=== PATIENT | female | born 1945 | race Caucasian/White ===

== ENCOUNTER 2016-07-08 17:12 | Emergency (ER) | payer MEDICARE, OTHER ==
[2016-07-08 14:59] LABS: BASOPHILS 0.6 %; BASOPHILS ABSOLUTE 0.05 10/3/uL (0.0-0.16); EOSINOPHILS 2.6 %; EOSINOPHILS ABSOLUTE 0.22 10/3/uL (0.0-0.53); ER CBC TAT 0 Hrs 07 Mins; HEMATOCRIT 36.9 % (36.0-48.0); HEMOGLOBIN 12.3 g/dL (12.0-16.0); IMMATURE GRANULOCYTES 0.4 %; IMMATURE GRANULOCYTES ABSOLUTE 0.03 10/3/uL (0.0-0.11); LYMPHOCYTES 19.6 %; LYMPHOCYTES ABSOLUTE 1.64 10/3/uL (0.67-4.30); MEAN CORPUS HGB CONC 33.3 g/dL (32.0-36.0); MEAN CORPUSCULAR HEMOGLOB 26.2 pg (26.0-34.0); MEAN CORPUSCULAR VOLUME 78.7 fL (80-100); MEAN PLATELET VOLUME 8.9 fL (9.2-13.0); MONOCYTES 8.3 %; MONOCYTES ABSOLUTE 0.69 10/3/uL (0.21-1.20); NEUTROPHILS 68.5 %; NEUTROPHILS ABSOLUTE 5.72 10/3/uL (2.02-8.40); PLATELET COUNT 337 10/3/uL (150-400); RBC DISTRIBUTION WIDTH 15.7 % (12.0-16.0); RED CELL COUNT 4.69 10/6/uL (4.0-5.6); WHITE BLOOD CELLS 8.4 10/3/uL (4.5-10.5)
[2016-07-08 15:07] LABS: MANUAL DIFF NO %
[2016-07-08 15:15] LABS: INTERNATIONAL NORMAL RATI 1.1 UNITS (-); PARTIAL THROMBO TIME 26.7 SEC (22.5-37.2)
[2016-07-08 15:16] LABS: A/G RATIO 0.8 (0.7-1.9); ALBUMIN 4.1 G/DL (3.5-5.0); ALKALINE PHOSPHATASE 76 U/L (45-117); BUN (BLOOD UREA NITROGEN) 23 MG/DL (6-23); CALCIUM, SERUM 9.5 MG/DL (8.5-10.4); CHLORIDE, SERUM 98 MMOL/L (96-112); CO2 (CARBON DIOXIDE) 22 MMOL/L (24-34); CREATININE 1.38 MG/DL (0.55-1.02); GFR AFRICAN AMERICAN 44 ML/MIN (>=60); GFR NON AFRICAN AMERICAN 38 ML/MIN (>=60); GLUCOSE, SERUM 138 MG/DL (60-99); POTASSIUM, SERUM 3.9 MMOL/L (3.5-5.3); SGOT(AST) 26 U/L (5-40); SGPT(ALT) 28 U/L (5-65); SODIUM, SERUM 132 MMOL/L (135-148); TOTAL BILIRUBIN 0.5 MG/DL (0-1.2); TOTAL PROTEIN 9.1 G/DL (6.0-8.5); TROPONIN I <0.02 NG/ML (<0.05)
[2016-07-08] MEDS ORDERED: HUMULIN N1 ML SC ×2 (17:16)
[2016-07-08] MEDS ORDERED: PRIN2.5 PO (17:17)
[2016-07-08] MEDS ORDERED: SYN.025B PO (17:17)
[2016-07-08] MEDS ORDERED: PROAIR HFA INH (17:18)
[2016-07-08] MEDS ORDERED: COMBIVENT RESPIM4 GM INH (17:18)
[2016-07-08] MEDS ORDERED: NEUR300 PO (17:19)
[2016-07-08] MEDS ORDERED: PROZAC40 MG PO (17:23)
[2016-07-08] MEDS ORDERED: AMIT75 PO (17:23)
[2016-07-08] MEDS ORDERED: LIPITOR40 PO (17:24)
[2016-07-08] MEDS ORDERED: BENTYL10 PO (17:30)
[2016-07-08] MEDS ORDERED: LAN125 PO (17:31)
[2016-07-08] MEDS ORDERED: NEXIUM40 PO (17:31)
[2016-07-08] MEDS ORDERED: AMARYL4 PO (17:34)
[2016-07-08] MEDS ORDERED: FLONASE NAS (17:35)
[2016-07-08] MEDS ORDERED: SINGULAIR1 PO (17:35)
[2016-07-08] MEDS ORDERED: THEO24300 PO (17:36)
[2016-07-08] MEDS ORDERED: 8 HOUR650 MG PO (17:40)
[2016-07-08] MEDS ORDERED: REFRESH OPH (17:41)
[2016-07-08 18:50] LABS: ASCORBIC ACID (UR NOT ORDER) NEG (NEG); BILIRUBIN, URINE NEGATIVE (NEG); ER URINALYSIS TAT 0 Hrs 16 Mins; KETONE, URINE NEGATIVE (NEG); LEUKOCYTE ESTERASE(NOT OR MOD (NEG); NITRITE (URINE) NEG (NEG); WBC (NOT ORDERED) (RFLEX) 3 (0-5)
== END 2016-07-08 22:07 | disposition home or self-care (01) ==
LOC: ER 17:12
PROVIDERS: Emergency Medicine
DX: R53.1 Weakness (principal); R51 Headache; R11.2 Nausea with vomiting, unspecified; R07.9 Chest pain, unspecified; E11.9 Type 2 diabetes mellitus without complications; Z86.73 Personal history of transient ischemic attack (TIA), and cerebral infarction without residual deficits; Z88.8 Allergy status to other drugs, medicaments and biological substances; Z88.6 Allergy status to analgesic agent; Z79.4 Long term (current) use of insulin; Z79.899 Other long term (current) drug therapy
CPT/HCPCS: 70450; 71020; 80053; 81001; 82962; 84484; 85025; 85610; 85652; 85730; 87086; 93005; 96374; 99285; J2405